=== PATIENT | female | born 1945 | race Two or more races ===

== ENCOUNTER 2016-12-30 18:51 | Emergency (ER) | payer OTHER ==
[~2016-12-30] VITALS: Ht 162.6 cm; Wt 48.1 kg
[2016-12-30] MEDS ORDERED: SODIUM CHLORIDE 0.9% 1,000 ML IV ONE (23:00)
[2016-12-30 23:13] LABS: Basophils # (auto) 0.1 uL; Basophils % (auto) 0.3 % (0.0-2.0); CONDITION Y; Eosinophils # (auto) 0.1 uL; Eosinophils % (auto) 0.9 % (0.0-7.0); Hematocrit 40.5 % (36.0-46.0); Hemoglobin 13.6 g/dL (12.2-16.2); Lymphocytes # (auto) 1.4 uL; Lymphocytes % (auto) 8.8 % (10.0-50.0); Mean Corpuscular Hemoglobin 31.8 pg (28.0-32.0); Mean Corpuscular Hgb Conc. 33.6 g/dL (32.0-36.0); Mean Corpuscular Volume 94.7 fL (80.0-100.0); Mean Platelet Volume 8.3 fL (7.4-10.4); Monocytes # (auto) 0.7 uL; Monocytes % (auto) 4.6 % (0.0-12.0); Neutrophils # (auto) 13.7 uL; Neutrophils % (auto) 85.4 % (37.0-80.0); Platelet Count (auto) 328 10^3/uL (140-450); Red Cell Distribution Width 14.5 % (11.6-16.0)
[2016-12-30] MEDS ORDERED: DIAZEPAM 5 MG TAB PO ONE (23:30)
[2016-12-30 23:31] LABS: BUN/Creatinine Ratio 22.3; Calcium 9.1 mg/dL (8.5-10.1); Potassium 3.6 mmol/L (3.5-5.1)
[2016-12-30 23:34] LABS: Bilirubin, Total 0.4 mg/dL (0.2-1.0); Total Protein 7.5 g/dL (6.4-8.2)
[2016-12-30 23:48] VITALS: BP 119/60
== END 2016-12-30 23:41 | disposition home or self-care (01) ==
LOC: ER 18:55
DX: T17.208A Unspecified foreign body in pharynx causing other injury, initial encounter (principal); I10 Essential (primary) hypertension; E07.9 Disorder of thyroid, unspecified; X58.XXXA Exposure to other specified factors, initial encounter; Y93.89 Activity, other specified; Y99.8 Other external cause status; Y92.89 Other specified places as the place of occurrence of the external cause
CPT/HCPCS: 36415; 70360; 80053; 85025; 96360; 99285; J7030

== ENCOUNTER 2024-11-02 12:25 | Emergency (ER) | payer OTHER ==
[~2024-11-02] VITALS: Ht 162.6 cm; Wt 44.4 kg
[2024-11-02 12:37] VITALS: BP 139/74; PULSE 88; TEMP 99.3; O2SAT 95
--- NOTE | 2024-11-02 12:54 | ED.PDOC ---
Foreign Body HPI Comments 79 year old female presents to the ED with a chief complaint of foreign body in nose onset today (11/02/24) about 2 hours ago. Patient states she was eating watermelon, began choking and believes some went up her nose. Patient states she had similar circumstance occur about 2 years ago. PMHx breast cancer, lung cancer, seizure, arthritis. Denies chest pain, shortness of breath, nausea, vomiting, diarrhea, headache, dizziness. No other symptoms or modifying factors present at this time. 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 Family History Family History: Reviewed,noncontributory to illness, No family hx of Cancer, No family hx of DM, No family hx of Heart govind, No family hx of HTN, No family hx ofKidney govind, No family hx of Liver govind, No family hx of Lung govind, No family hx of Stroke Social History Smoker: Non-Smoker Alcohol: Denies ETOH Use Drugs: Denies Drug Use Lives In: Home Constitutional: denies: chills, diaphoresis, fatigue, fever, malaise, sweats, weakness, others EENTM: reports: others (foreign body inside nose); denies: blurred vision, double vision, ear bleeding, ear discharge, ear drainage, ear pain, ear ringing, eye pain, eye redness, hearing loss, mouth pain, mouth swelling, nasal discharge, nose bleeding, nose congestion, nose pain, photophobia, tearing, throat pain, throat swelling, voice changes Respiratory: denies: cough, hemoptysis, orthopnea, SOB at rest, shortness of breath, SOB with excertion, stridor, wheezing, others Cardiovascular: denies: chest pain, dizzy spells, diaphoresis, Dyspnea on exertion, edema, irregular heart beat, left arm pain, lightheadedness, palpitations, PND, syncope, others Gastrointestinal: denies: abdomen distended, abdominal pain, blood streaked bowels, constipated, diarrhea, dysphagia, difficulty swallowing, hematemesis, melena, nausea, poor appetite, poor fluid intake, rectal bleeding, rectal pain, vomiting, others Genitourinary: denies: abnormal vagina bleeding, burning, dyspareunia, dysuria, flank pain, frequency, hematuria, incontinence, pain, , vagina discharge, urgency, others Neurological: denies: dizziness, fainting, headache, left sided numbness, left sided weakness, numbness, paresthesia, pre-existing deficit, right sided numbness, right sided weakness, seizure, speech problems, tingling, tremors, weakness, others Musculoskeletal: denies: back pain, gout, joint pain, joint swelling, muscle pain, muscle stiffness, neck pain, others Integumetry: denies: bruises, change in color, change in hair/nails, dryness, laceration, lesions, lumps, rash, wounds, others Allergic/Immunocompromised: denies: Difficulty Healing, Frequent Infections, Hives, Itching, others Hematologic/Lymphatic: denies: anemia, blood clots, easy bleeding, easy bruising, swollen glands, others Endocrine: denies: excessive hunger, excessive sweating, excessive thirst, excessive urination, flushing, intolerance to cold, intolerance to heat, unexplained weight gain, unexplained weight loss, others Psychiatric: denies: anxiety, bipolar disorder, depression, hopeless, panic disorder, schizophrenia, sleepless, suicidal, others All Other Systems: Reviewed and Negative Physical Exam General Appearance: Moderate Distress, Normal HEENT: Normal ENT Inspection, Pharynx Normal, TMs Normal Neck: Full Range of Motion, Non-Tender, Normal, Normal Inspection Respiratory: Chest Non-Tender, Lungs Clear, No Accessory Muscle Use, No Respiratory Distress, Normal Breath Sounds Cardiovascular: No Edema, No JVD, No Murmur, No Gallop, Normal Peripheral Pulses, Regular Rate/Rhythm Breast Exam: Deferred Gastrointestinal: No Organomegaly, Non Tender, No Pulsatile Mass, Normal Bowel Sounds, Soft Genitalia: Deferred Pelvic: Deferred Rectal: Deferred Extremities: No calf tenderness, Normal capillary refill, Normal inspection, Normal range of motion, Non-tender, No pedal edema Musculoskeletal : Apperance: Normal Neurologic: Alert, special education coordinator II-XII nml as Tested, No Motor Deficits, Normal Affect, Normal Mood, No Sensory Deficits Cerebellar Function: Normal Reflexes: Normal Skin: Dry, Normal Color, Warm Peripheral Pulses: 3+ Radial (R), 3+ Radial (L) Lymphatic: No Adenopathy Was a procedure done? Was a procedure done?: No FB Differential Dx Differential Diagnosis: Abrasion X-Ray, Labs, Meds, VS Vital Signs Date Time Temp Pulse Resp B/P (MAP) Pulse Ox O2 Delivery O2 Flow Rate FiO2 11/02/24 13:56 16 Room Air* 0 21 11/02/24 12:37 99.3 88 18 139/74 (95) 95 99.3 Current Medications Medications (Trade) Dose Ordered Sig/Shreya Route Start Time Stop Time Status Last Admin Sodium Chloride 1,000 ml @ 1,000 mls/hr Q1H ONCE IV 11/02/24 13:00 11/02/24 13:59 DC 11/02/24 13:44 Patient alert. States that she had swallowed something that might have scratched her throat. Vitals stable. Answering questions. On examination there is abrasion in the back of the throat. Establish intravenous access. Was given fluids. States that she is feeling much better. Reviewed her previous history. Explained to the patient. Was told to follow up with her primary care physician. Was told to come back if there is any problem. Time of 1ST Reevaluation: 13:13 Reevaluation 1ST: Unchanged Time of 2ND Reevaluation: 15:18 Reevaluation 2ND: Improved Patient Education/Counseling: Diagnosis, Treatment, Prognosis Family Education/Counseling: No Family Present Departure 1 Departure Time of Disposition: 15:19 Impression: Primary Impression: Sensation of foreign body Disposition: 01 HOME / SELF CARE / HOMELESS Condition: Good Discharged With: Self Critical Care Note Critical Care Time?: No Stability Stability form required: No Heart Score Heart Score: Heart Score Response (Comments) Value History N/A 0 EKG N/A 0 Age N/A 0 Risk Factors N/A 0 Troponin N/A 0 Total 0 I personally scribed for ALICIA DONALDSON MD ([email or web address]) on 11/02/24 at 12:54. Electronically submitted by Kerry Guardado ([email or web address]). ALICIA DONALDSON MD November 02, 2024 12:54
[2024-11-02] MEDS: SODIUM CHLORIDE 0.9% 1,000 ML IV ONE (13:44)
[2024-11-02 13:56] VITALS: RESP 16
== END 2024-11-02 15:07 | disposition home or self-care (01) ==
LOC: ER 12:30
DX: R09.A1 Foreign body sensation, nose (principal); M19.90 Unspecified osteoarthritis, unspecified site; I10 Essential (primary) hypertension; Z85.3 Personal history of malignant neoplasm of breast; Z86.69 Personal history of other diseases of the nervous system and sense organs; Z90.10 Acquired absence of unspecified breast and nipple
CPT/HCPCS: 96360; 99283; J7030